=== PATIENT | female | born 1980 | race Caucasian/White ===

== ENCOUNTER 2022-10-18 21:27 | Emergency (ER) | payer BC ==
[~2022-10-18] VITALS: Ht 165.1 cm; Wt 49.9 kg
[2022-10-18 21:35] VITALS: BP 120/73
--- NOTE | 2022-10-18 21:38 | NUR ---
TO LOBBY A/W BED AMBULATORY
[2022-10-18] MEDS ORDERED: IBUPROFEN 600 MG TAB PO ONE (22:20)
--- NOTE | 2022-10-18 22:26 | NUR ---
SEEN AND EXAMINED BY PIERRE
[2022-10-18 23:10] VITALS: BP 119/80
--- NOTE | 2022-10-18 23:10 | NUR ---
Patient discharged with v/s stable. Written and verbal after care instructions given and explained. Patient verbalized understanding. Ambulatory with steady gait. All questions addressed prior to discharge. Advised to follow up with PMD.
== END 2022-10-18 23:10 | disposition home or self-care (01) ==
LOC: MED 21:27
DX: S63.502A Unspecified sprain of left wrist, initial encounter (principal); W18.30XA Fall on same level, unspecified, initial encounter; Y93.89 Activity, other specified; Y92.89 Other specified places as the place of occurrence of the external cause; Y99.8 Other external cause status
CPT/HCPCS: 73110; 99283